=== PATIENT | male | born 1950 | race Caucasian/White ===

== ENCOUNTER → 2016-09-09 | Outpatient (REF) | payer MEDICARE, BC ==
[2016-09-09 12:00] LABS: ANION GAP 6 MEQ/L (8-16); BLOOD UREA NITROGEN 12 MG/DL (7-18); CARBON DIOXIDE LEVEL 32 MEQ/L (21-32); CHLORIDE LEVEL 95 MEQ/L (98-107); CHOLESTEROL LEVEL 173 MG/DL (<200); CREATININE FOR GFR 0.85 MG/DL (0.70-1.30); GLOMERULAR FILTRATION RATE > 60.0 (>49); GLUCOSE, FASTING 150 MG/DL (80-110); POTASSIUM SERUM 4.4 MEQ/L (3.5-5.1); SODIUM LEVEL 133 MEQ/L (136-145); TRIGLYCERIDES LEVEL 35 MG/DL (<150)
== END ==
LOC: M LABDRAWC 11:12
PROVIDERS: ATTEND Internal Medicine Endocrinology, Diabetes & Metabolism
DX: I10 Essential (primary) hypertension (principal); E10.21 Type 1 diabetes mellitus with diabetic nephropathy

== ENCOUNTER → 2016-09-15 | Outpatient (REF) | payer MEDICARE, BC ==
[~2016-09-15] MED LIST: AMLO10TA2 PO; ASPI81TA85 PO; CARV3.12 PO; FLUT22IN INH; INSULANT SQ; LISI-538 PO; LOVA20TA2 PO; NOVOINJ3 SC; NOVOINJ3 SQ; SPIR1CAP INH; SYMB16INH INH
== END ==
LOC: M LAB REF 12:32
PROVIDERS: ATTEND Internal Medicine Endocrinology, Diabetes & Metabolism
DX: E10.21 Type 1 diabetes mellitus with diabetic nephropathy (principal); I10 Essential (primary) hypertension
CPT/HCPCS: 81050; 82043; G0463

== ENCOUNTER 2016-12-10 08:13 | Outpatient (CLI) | payer MEDICARE ==
[~2016-12-10] VITALS: Ht 172.7 cm; Wt 95.3 kg
[~2016-12-10 08:13] MED LIST changes: +NS 1,000 ML IV ONE
[2016-12-10] MEDS ORDERED: ALBUTEROL SULFATE 2.5 MG/0.5 ML INH NEB SOLN INH ONE (09:00)
[2016-12-10] MEDS ORDERED: PROPOFOL 200 MG/20 ML VIAL As Ordered ONE ×2 (09:26→09:39)
--- NOTE | 2016-12-10 09:52 | ROOR ---
Patient Name: Eliceo King Procedure Date: 12/10/2016 9:27 AM Date of : 1950 Age: 66 Room: [facility] Gender: Male Note Status: Finalized Procedure: Colonoscopy Indications: High risk colon cancer surveillance: Personal history of adenoma with high grade dysplasia Providers: DO Alejo Dutta MD: Tesfaye Vargas MD Requesting Provider: Medicines: Propofol per Anesthesia Complications: No immediate complications. Procedure: Pre-Anesthesia Assessment: - Prior to the procedure, a History and Physical was performed, and patient medications and allergies were reviewed. The patient is competent. The risks and benefits of the procedure and the sedation options and risks were discussed with the patient. All questions were answered and informed consent was obtained. Patient identification and proposed procedure were verified by the nurse, the anesthesiologist and the photographic equipment technician in the endoscopy suite. Mental Status Examination: alert and oriented. Airway Examination: normal oropharyngeal airway and neck mobility. Respiratory Examination: clear to auscultation. CV Examination: normal. Prophylactic Antibiotics: The patient does not require prophylactic antibiotics. Prior Anticoagulants: The patient has taken no previous anticoagulant or antiplatelet agents. ASA Grade Assessment: III - A patient with severe systemic disease. After reviewing the risks and benefits, the patient was deemed in satisfactory condition to undergo the procedure. The anesthesia plan was to use monitored anesthesia care (MAC). Immediately prior to administration of medications, the patient was re-assessed for adequacy to receive sedatives. The heart rate, respiratory rate, oxygen saturations, blood pressure, adequacy of pulmonary ventilation, and response to care were monitored throughout the procedure. The physical status of the patient was re-assessed after the procedure. The Colonoscope was introduced through the anus and advanced to the cecum, identified by appendiceal orifice and ileocecal valve. The colonoscopy was performed without difficulty. The patient tolerated the procedure well. Findings: Three hyperplastic polyps were found in the sigmoid colon and transverse colon. These polyps were removed with a jumbo cold forceps. Resection and retrieval were complete. Estimated blood loss was minimal. The perianal exam findings include internal hemorrhoids (Grade I). The exam was otherwise without abnormality on direct and retroflexion views. Impression: - Three polyps in the sigmoid colon and in the transverse colon, removed with a jumbo cold forceps. Resected and retrieved. - Internal hemorrhoids (Grade I) found on perianal exam. - The examination was otherwise normal on direct and retroflexion views. Recommendation: - Patient has a contact number available for emergencies. The signs and symptoms of potential delayed complications were discussed with the patient. Return to normal activities tomorrow. Written discharge instructions were provided to the patient. - Repeat colonoscopy in 3 - 5 years for surveillance based on pathology results. - Return to my office PRN. Gerard Dunn DO 12/10/2016 9:52:15 AM This report has been signed electronically. Number of Addenda: 0 Note Initiated On: 12/10/2016 9:27 AM Estimated Blood Loss: Estimated blood loss was minimal.
[2016-12-10 10:23] VITALS: BP 139/74
== END 2016-12-10 10:27 | disposition home or self-care (01) ==
LOC: M OPP 08:13
PROVIDERS: ATTEND Surgery
DX: Z09 Encounter for follow-up examination after completed treatment for conditions other than malignant neoplasm (principal); K63.5 Polyp of colon; D12.3 Benign neoplasm of transverse colon; K64.8 Other hemorrhoids; I10 Essential (primary) hypertension; E78.00 Pure hypercholesterolemia, unspecified; E11.9 Type 2 diabetes mellitus without complications; J44.9 Chronic obstructive pulmonary disease, unspecified; N40.0 Benign prostatic hyperplasia without lower urinary tract symptoms; Z87.891 Personal history of nicotine dependence; Z79.899 Other long term (current) drug therapy; Z79.82 Long term (current) use of aspirin; Z79.4 Long term (current) use of insulin

== ENCOUNTER → 2017-01-26 | Outpatient (CLI) | payer MEDICARE ==
[~2017-01-26] MED LIST changes: -NS 1,000 ML IV ONE
--- NOTE | 2017-01-26 12:13 | REP ---
Chest x-ray: Two views. History: Left lower lobe pneumonia. Comparison study: September 08, 2013. Findings: The lungs are hyperinflated consistent with COPD. There are emphysematous changes in the apices. There is linear fibrosis in the right base unchanged and some mild interstitial fibrosis changes are seen in both bases. On today's radiograph there is a new somewhat nodular opacity in the left apex which merits further evaluation. Chest CT study recommended. No other abnormality. Impression: Evidence of COPD with bibasilar fibrosis. Question nodular opacity in the left apex recommend chest CT study.
== END ==
LOC: M CLY 09:47
PROVIDERS: ATTEND Family Medicine
DX: J18.1 Lobar pneumonia, unspecified organism (principal); J98.4 Other disorders of lung; Z23 Encounter for immunization
CPT/HCPCS: 71020; G0008

== ENCOUNTER → 2017-06-17 | Outpatient (REF) | payer MEDICARE ==
[2017-06-17 17:10] LABS: PLATELET COUNT, AUTOMATED 334 10^3/uL (150-450)
[2017-06-17 17:20] LABS: INR 0.87; PROTHROMBIN TIME 11.9 SECONDS (12.4-14.5)
[2017-06-17 17:21] LABS: PARTIAL THROMBOPLASTIN TIME 31.1 SECONDS (26.8-37.9)
== END ==
LOC: M LAB REF 16:43
DX: R91.8 Other nonspecific abnormal finding of lung field (principal)
CPT/HCPCS: 85049

== ENCOUNTER → 2017-07-06 | Outpatient (CLI) | payer MEDICARE ==
[~2017-07-06] MED LIST changes: -AMLO10TA2 PO; -ASPI81TA85 PO; -CARV3.12 PO; -FLUT22IN INH; -INSULANT SQ; +LIDOCAINE 1% MDV 20ML VIAL As Ordered; -LISI-538 PO; -LOVA20TA2 PO; -NOVOINJ3 SC; -NOVOINJ3 SQ; -SPIR1CAP INH; -SYMB16INH INH
== END ==
LOC: M RADPRO 09:50
DX: R91.8 Other nonspecific abnormal finding of lung field (principal); Z79.899 Other long term (current) drug therapy
CPT/HCPCS: 71250

== ENCOUNTER → 2017-10-13 | Outpatient (CLI) | payer MEDICARE | LOC: M RAD 14:12 | DX: R91.8 Other nonspecific abnormal finding of lung field (principal) | CPT/HCPCS: 71250 ==

== ENCOUNTER → 2017-10-28 | Outpatient (REF) | payer MEDICARE ==
[2017-10-28 17:44] LABS: PLATELET COUNT, AUTOMATED 317 10^3/uL (150-450)
[2017-10-28 17:55] LABS: PROTHROMBIN TIME 12.3 SECONDS (12.1-14.4)
[2017-10-28 17:56] LABS: PARTIAL THROMBOPLASTIN TIME 32.5 SECONDS (25.4-37.6)
== END ==
LOC: M LAB REF 16:51
DX: R91.1 Solitary pulmonary nodule (principal)
CPT/HCPCS: 85049

== ENCOUNTER 2017-11-12 06:16 | Day surgery (SDC) | payer MEDICARE ==
[2017-11-12] MEDS: LR 1,000 ML IV (06:40)
[2017-11-12 06:51] LABS: BEDSIDE GLUCOSE 136 MG/DL (80-115)
[2017-11-12] MEDS ORDERED: PROPOFOL 200 MG/20 ML VIAL As Ordered (07:12)
[2017-11-12] MEDS ORDERED: LIDOCAINE 2% INJ 100 MG/5 ML SDV (FOR ANES.) As Ordered (07:12)
[2017-11-12] MEDS ORDERED: SUCCINYLCHOLINE 100 MG/5 ML SYRINGE (J0330) As Ordered (07:12)
[2017-11-12] MEDS ORDERED: fentaNYL 100 MCG/2 ML INJECTION (J3010) As Ordered (07:15)
[2017-11-12] MEDS ORDERED: MIDAZOLAM INJ 2 MG/2 ML VIAL (J2250) As Ordered (07:15)
[2017-11-12] MEDS: THROMBIN SOLN 5,000 UNITS VIAL As Ordered (07:16)
[2017-11-12] MEDS: EPINEPHrine 1MG/10ML SYRINGE 1.5IN As Ordered (07:16)
[2017-11-12] MEDS: LIDOCAINE 4% TOPICAL SOLN 50 ML BTL As Ordered (07:17)
[2017-11-12] MEDS: LIDOCAINE VISCOUS 2% SOLN 15ML UDC As Ordered (07:17)
[2017-11-12] MEDS: CETACAINE SPRAY 5GM As Ordered (07:45)
[2017-11-12] MEDS ORDERED: ONDANSETRON 4MG/2ML VIAL (J2405) As Ordered (07:57)
[2017-11-12] MEDS: LIDOCAINE 1% SDV INJ 30 ML VIAL As Ordered (08:00)
[2017-11-12 08:34] LABS: BEDSIDE GLUCOSE 145 MG/DL (80-115)
[2017-11-12] MEDS ORDERED: fentaNYL 100 MCG/2 ML INJECTION (J3010) IV (08:45)
[2017-11-12] MEDS ORDERED: LR 1,000 ML IV (08:45)
[2017-11-12] MEDS ORDERED: ONDANSETRON 4MG/2ML VIAL (J2405) IV (08:45)
== END 2017-11-12 09:38 | disposition home or self-care (01) ==
LOC: M SDC 06:16
DX: J44.1 Chronic obstructive pulmonary disease with (acute) exacerbation (principal); R91.1 Solitary pulmonary nodule; E11.9 Type 2 diabetes mellitus without complications; I10 Essential (primary) hypertension; N40.0 Benign prostatic hyperplasia without lower urinary tract symptoms; Z79.82 Long term (current) use of aspirin; Z79.4 Long term (current) use of insulin; Z79.899 Other long term (current) drug therapy
CPT/HCPCS: 31623

== ENCOUNTER → 2017-12-30 | Outpatient (REF) | payer MEDICARE ==
[2017-12-30 18:38] LABS: ALBUMIN 3.6 GM/DL (3.2-5.2); ALBUMIN/GLOBULIN RATIO 1.06 (1.00-1.93); ALKALINE PHOSPHATASE 101 U/L (45-117); ALT/SGPT 26 U/L (12-78); ANION GAP 9 MEQ/L (8-16); AST/SGOT 12 U/L (7-37); BILIRUBIN,TOTAL 0.6 MG/DL (0.2-1.0); BLOOD UREA NITROGEN 15 MG/DL (7-18); CALCIUM LEVEL 9.1 MG/DL (8.8-10.2); CARBON DIOXIDE LEVEL 29 MEQ/L (21-32); CHLORIDE LEVEL 95 MEQ/L (98-107); CHOLESTEROL LEVEL 161 MG/DL (<200); CHOLESTEROL RISK RATIO 1.894 (<5); CREATININE FOR GFR 0.72 MG/DL (0.70-1.30); GLOMERULAR FILTRATION RATE > 60.0 (>49); GLUCOSE, FASTING 133 MG/DL (70-100); HDL CHOLESTEROL 85 MG/DL (>40); LDL CHOLESTEROL 63 MG/DL (<100); NON-HDL-C 76 MG/DL; POTASSIUM SERUM 4.2 MEQ/L (3.5-5.1); SODIUM LEVEL 133 MEQ/L (136-145); TRIGLYCERIDES LEVEL 65 MG/DL (<150)
[2017-12-30 21:18] LABS: ESTIMATED AVERAGE GLUCOSE 131 MG/DL (60-110); HEMOGLOBIN A1c 6.2 %
== END ==
LOC: M SFHCCLAY 11:09
DX: E10.9 Type 1 diabetes mellitus without complications (principal); I10 Essential (primary) hypertension; E78.00 Pure hypercholesterolemia, unspecified
CPT/HCPCS: 80053

== ENCOUNTER → 2018-01-07 | Outpatient (CLI) | payer MEDICARE | LOC: M RAD 12:08 | DX: R91.1 Solitary pulmonary nodule (principal); J43.9 Emphysema, unspecified | CPT/HCPCS: 71250 ==

== ENCOUNTER → 2018-04-16 | Outpatient (CLI) | payer MEDICARE ==
[~2018-04-16] MED LIST changes: +AMLO10TA5 PO; +ASPI81TA85 PO; +CARV3.12 PO; +FLUT22IN INH; +HUMA100I3 SC; +INSULANT SQ; -LIDOCAINE 1% MDV 20ML VIAL As Ordered; +LISI-538 PO; +LOVA20TA2 PO; +NOVOINJ3 SC; +NOVOINJ3 SQ; +PROAAER10 INH; +SPIR1CAP INH; +SYMB16INH INH; +TOUJ1.2I SC
--- NOTE | 2018-04-16 11:15 | REP ---
CT study of the chest without contrast: History: Solitary pulmonary nodule. Comparison CT study January 07, 2018. Findings: There has been a waxing and waning pattern of parenchymal nodular opacities. Today's study demonstrates a new 9 mm spiculated nodular density in the left posterior lung gutter not present on either January or October 2017 prior studies. The nodule which was identified as a new 10 mm nodule in the superior segment of the right lower lobe on the January 07, 2018 prior study has resolved. There are multiple stable noncalcified and partially calcified nodules bilaterally. There are emphysematous changes and fibrotic changes in the upper lobes bilaterally. No pleural or pericardial effusions seen. Vascular calcification is seen. No hilar or mediastinal mass or adenopathy is observed. No adrenal lesion is seen. Bone window settings show no bony destructive lesion. Impression: Waxing and waning pattern of spiculated nodular opacities bilaterally suggesting inflammatory or granulomatous changes. There is a new spiculated nodule today in the left lower lobe posteriorly. The most recently identified nodule in the superior segment of the right lower lobe has resolved. There are multiple stable nodules as well. Electronically Signed by Vinh Lentz MD 04/16/2018 12:11 P
== END ==
LOC: M RAD 09:09
PROVIDERS: ATTEND Internal Medicine Pulmonary Disease
DX: R91.1 Solitary pulmonary nodule (principal)

== ENCOUNTER → 2018-08-04 | Outpatient (CLI) | payer MEDICARE ==
--- NOTE | 2018-08-14 10:01 | REP ---
CT CHEST WITHOUT CONTRAST: REPEAT DICTATION. HISTORY: Solitary pulmonary nodule. Comparison chest CT studies are reviewed from March 11, 2017, October 13, 2017, January 07, 2018, and April 16, 2018. The studies have shown waxing and waning pattern of spiculated nodular densities bilaterally and some stable nodules. FINDINGS: The spiculated nodular 9 mm density identified on the most recent prior study in the left lower lobe, April 16, 2018, has resolved. All of the other nodular opacities visualized on April 16, 2018 prior study are again seen, unchanged. No new pulmonary nodule is appreciated. There are emphysematous and fibrotic changes. These are most pronounced in the upper lobes and are also unchanged. There is linear strand-like material in the tracheobronchial tree, consistent with mucus. No pleural or pericardial effusion is seen. Some vascular calcifications noted. No adrenal lesion is observed. IMPRESSION: Stable nodular densities. Most recent prior study showed a 9 mm spiculated nodule in the left lower lobe. This has resolved. Electronically Signed by Vinh Lentz MD 08/14/2018 11:01 A
== END ==
LOC: M RAD 10:45
PROVIDERS: ATTEND Internal Medicine Pulmonary Disease
DX: R91.1 Solitary pulmonary nodule (principal)

== ENCOUNTER → 2019-09-26 | Outpatient (REF) | payer MEDICARE ==
[2019-09-26 12:55] LABS: CREATININE, URINE 30.8 MG/DL; MAU/CREAT RATIO 35.7 MCG/MG (0.0-30.0)
== END ==
LOC: M LABDRAWC 11:19
PROVIDERS: ATTEND Nurse Practitioner Family
DX: E10.21 Type 1 diabetes mellitus with diabetic nephropathy (principal)

== ENCOUNTER → 2019-10-26 | Outpatient (CLI) | payer MEDICARE ==
[~2019-10-26] MED LIST changes: -AMLO10TA5 PO; +AMLO1TAB25 PO; -ASPI81TA85 PO; +ASPI81TA86 PO
--- NOTE | 2019-10-26 11:39 | REP ---
Clinical: Follow up pulmonary densities. Technique: Axial noncontrast images from the thoracic inlet to the upper abdomen with coronal and sagittal re-formations. Comparison: 08/04/2018, 04/16/2018, 01/07/2018. Findings: Advanced COPD/emphysematous changes are again appreciated along with few scattered calcified nodular densities and a previously reported waxing and waning pattern of the parenchymal nodular changes suggesting an underlying inflammatory or granulomatous process. The current examination now demonstrates a 9 mm spiculated part solid density in the posterior right upper lobe (image 35). No further significant new/prominent lesion is identified. No effusion. No pneumothorax. Tracheobronchial tree is patent. No obvious axillary, hilar, or mediastinal adenopathy. The mediastinum again demonstrates stable atherosclerotic changes to the thoracic aorta and coronary arteries without aortic aneurysm or cardiomegaly. No pericardial effusion. Surrounding musculoskeletal structures demonstrate age-related changes. Limited upper abdomen demonstrates normal bilateral adrenal glands. Impression: 1. Chronic COPD/emphysematous disease. 2. Previously reported a waxing and waning nodular changes likely represent an underlying infectious/inflammatory or granulomatous process and the current examination now demonstrates a new 9 mm part solid spiculated lesion in the right upper lobe. Electronically Signed by Brian Gifford MD 10/26/2019 11:31 A
== END ==
LOC: M RAD 10:54
PROVIDERS: ATTEND Internal Medicine Pulmonary Disease
DX: R91.8 Other nonspecific abnormal finding of lung field (principal)

== ENCOUNTER → 2020-01-06 | Outpatient (REF) | payer MEDICARE ==
[2020-01-06 13:30] LABS: BLOOD UREA NITROGEN 12 MG/DL (7-18); CALCIUM LEVEL 9.2 MG/DL (8.8-10.2); CARBON DIOXIDE LEVEL 34 MEQ/L (21-32); CHLORIDE LEVEL 96 MEQ/L (98-107); CHOLESTEROL LEVEL 180 MG/DL (<200); CHOLESTEROL RISK RATIO 2.278 (<5); CREATININE FOR GFR 0.76 MG/DL (0.70-1.30); GLOMERULAR FILTRATION RATE > 60.0 (>49); GLUCOSE, FASTING 102 MG/DL (70-100); HDL CHOLESTEROL 79 MG/DL (>40); LDL CHOLESTEROL 92 MG/DL (<100); NON-HDL-C 101 MG/DL; POTASSIUM SERUM 4.5 MEQ/L (3.5-5.1); SODIUM LEVEL 134 MEQ/L (136-145); TRIGLYCERIDES LEVEL 46 MG/DL (<150)
== END ==
LOC: M SFHCCLAY 07:13
PROVIDERS: ATTEND Family Medicine
DX: E78.00 Pure hypercholesterolemia, unspecified (principal); I11.9 Hypertensive heart disease without heart failure

== ENCOUNTER → 2020-03-05 | Outpatient (CLI) | payer MEDICARE ==
--- NOTE | 2020-03-05 08:36 | REP ---
INDICATION: OTHER NONSPECIFIC ABNORMAL FINDING. COMPARISON: Comparison chest CT studies are reviewed, the most recent of which is October 26, 2019. August 04, 2018 and January 07, [address] studies are also reviewed. Previous studies of showed a waxing and waning pattern of multifocal pulmonary nodular disease.. TECHNIQUE: Helical scanning is acquired and 3 mm axial images re-formatted. Coronal and sagittal MPR images are generated. FINDINGS: Lungs are hyperinflated and advanced emphysematous changes are noted in the upper lung zones again consistent with COPD. Today's CT study shows numerous new ill-defined irregular nodular opacities scattered throughout the upper and lower lobes bilaterally.. The largest of these new opacities are in the lower lobes. There is a pleural based lesion in the left lower lobe 2 cm in diameter and a pleural based lesion in the right lower lobe 2.5 cm in greatest diameter. There are old granulomatous calcifications and cysts multiple old subcentimeter nodules are again seen unchanged but there is a pat prominent pattern of new multifocal ill-defined nodular disease. No endobronchial disease is appreciated. There are scattered normal sized mediastinal lymph nodes. None of these is pathologically enlarged but are several new lymph nodes. The largest lymph node is in the AP window region of the mediastinum on the left measuring 7 mm in short axis dimension. No definite adenopathy. Left coronary artery vascular calcification and right coronary artery vascular calcification are again noted. Normal adrenal glands are seen. The visualized upper abdominal structures are unremarkable. IMPRESSION: Numerous new ill-defined nodular marshall densities scattered in the upper and lower lobes bilaterally. Largest of these measures 2.5 cm in greatest diameter. Chronic changes COPD emphysema. <Electronically signed by Chris Lentz > 03/05/20 [id number]
== END ==
LOC: M RAD 07:48
PROVIDERS: ATTEND Internal Medicine Pulmonary Disease
DX: R91.1 Solitary pulmonary nodule (principal)

== ENCOUNTER → 2020-03-08 | Outpatient (REF) | payer MEDICARE | LOC: M LAB REF 11:08 | PROVIDERS: ATTEND Internal Medicine Pulmonary Disease | DX: J43.1 Panlobular emphysema (principal) ==

== ENCOUNTER → 2020-03-08 | Outpatient (REF) | payer MEDICARE ==
[2020-03-15 10:11] LABS: ASPERGILLUS FLAVUS ABY Negative (Neg:<1:1); ASPERGILLUS FUMIGATUS ABY Negative (Neg:<1:1); ASPERGILLUS NIGER ABY Negative (Neg:<1:1); BLASTOMYCES ANTIBODY LEVEL Negative (Neg:<1:1); CRYPTOCOCCUS ANTIGEN SER Negative (Negative)
== END ==
LOC: M LABDRAWC 11:06
PROVIDERS: ATTEND Internal Medicine Pulmonary Disease
DX: R91.8 Other nonspecific abnormal finding of lung field (principal); J43.1 Panlobular emphysema

== ENCOUNTER → 2020-03-21 | Outpatient (CLI) | payer MEDICARE ==
--- NOTE | 2020-03-21 10:43 | REP ---
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 COMPARISON: Comparison chest x-ray November 12, 2017. January 26, 2017 radiograph is also reviewed. There is a comparison chest CT study March 05, 2020. This showed numerous ill-defined nodules. TECHNIQUE: Two views.. FINDINGS: The lungs are hyperinflated consistent with some degree of COPD as before. Ill-defined nodular opacities are seen at the left base, overlying the left hilus, and on the lateral film anteriorly in the retrosternal clear space. No focal infiltrate is appreciated. There is linear fibrosis in the right base which is unchanged. The heart is not enlarged. Degenerative changes are noted in the thoracic spine. IMPRESSION: Hyperinflation consistent with COPD. Ill-defined nodular opacities on the left as above and correlating with recent CT findings.. Linear fibrosis right base.. <Electronically signed by Chris Lentz > 03/21/20 [id number]
== END ==
LOC: M CLY 09:20
PROVIDERS: ATTEND Internal Medicine Pulmonary Disease
DX: J43.1 Panlobular emphysema (principal)

== ENCOUNTER → 2020-04-11 | Outpatient (REF) | payer MEDICARE ==
[2020-04-11 12:20] LABS: BLOOD UREA NITROGEN 19 MG/DL (7-18); CALCIUM LEVEL 9.5 MG/DL (8.8-10.2); CARBON DIOXIDE LEVEL 36 MEQ/L (21-32); CHLORIDE LEVEL 98 MEQ/L (98-107); CREATININE FOR GFR 0.88 MG/DL (0.70-1.30); GLOMERULAR FILTRATION RATE > 60.0 (>49); GLUCOSE, FASTING 64 MG/DL (70-100); POTASSIUM SERUM 4.7 MEQ/L (3.5-5.1); SODIUM LEVEL 137 MEQ/L (136-145)
== END ==
LOC: M SFHCCLAY 09:11
PROVIDERS: ATTEND Family Medicine
DX: I11.9 Hypertensive heart disease without heart failure (principal)
CPT/HCPCS: 80048; G0442; G0444

== ENCOUNTER → 2020-08-08 | Outpatient (REF) | payer MEDICARE ==
[~2020-08-08] MED LIST changes: -LISI-538 PO; +LISI20TA33 PO
[2020-08-08 17:06] LABS: BLOOD UREA NITROGEN 16 MG/DL (7-18); CALCIUM LEVEL 9.2 MG/DL (8.8-10.2); CARBON DIOXIDE LEVEL 33 MEQ/L (21-32); CHLORIDE LEVEL 96 MEQ/L (98-107); CREATININE FOR GFR 0.75 MG/DL (0.70-1.30); GLOMERULAR FILTRATION RATE > 60.0 (>49); GLUCOSE, FASTING 114 MG/DL (70-100); POTASSIUM SERUM 4.6 MEQ/L (3.5-5.1); SODIUM LEVEL 133 MEQ/L (136-145)
== END ==
LOC: M SFHCCLAY 09:36
PROVIDERS: ATTEND Family Medicine
DX: I11.9 Hypertensive heart disease without heart failure (principal)
CPT/HCPCS: 80048; G0463

== ENCOUNTER → 2020-09-10 | Outpatient (REF) | payer MEDICARE ==
[2020-09-11 13:12] LABS: MALB URINE SIEMENS 11.6 MG/L; MAU/CREAT RATIO 25.7 MCG/MG (0.0-30.0)
== END ==
LOC: M LAB REF 17:08
PROVIDERS: ATTEND Nurse Practitioner Family
DX: E10.21 Type 1 diabetes mellitus with diabetic nephropathy (principal)

== ENCOUNTER → 2020-12-12 | Outpatient (REF) | payer MEDICARE ==
[2020-12-12 16:27] LABS: BLOOD UREA NITROGEN 16 MG/DL (7-18); CALCIUM LEVEL 9.3 MG/DL (8.8-10.2); CARBON DIOXIDE LEVEL 33 MEQ/L (21-32); CHLORIDE LEVEL 96 MEQ/L (98-107); CREATININE FOR GFR 0.77 MG/DL (0.70-1.30); GLOMERULAR FILTRATION RATE > 60.0 (>42); GLUCOSE, FASTING 119 MG/DL (70-100); POTASSIUM SERUM 4.8 MEQ/L (3.5-5.1); SODIUM LEVEL 133 MEQ/L (136-145)
== END ==
LOC: M SFHCCLAY 09:49
PROVIDERS: ATTEND Family Medicine
DX: I11.9 Hypertensive heart disease without heart failure (principal)
CPT/HCPCS: 80048; G0463

== ENCOUNTER → 2021-04-17 | Outpatient (REF) | payer MEDICARE ==
[2021-04-17 13:21] LABS: BLOOD UREA NITROGEN 9 MG/DL (7-18); CALCIUM LEVEL 9.2 MG/DL (8.8-10.2); CARBON DIOXIDE LEVEL 32 MEQ/L (21-32); CHLORIDE LEVEL 98 MEQ/L (98-107); CHOLESTEROL LEVEL 175 MG/DL (<200); CHOLESTEROL RISK RATIO 1.861 (<5); CREATININE FOR GFR 0.74 MG/DL (0.70-1.30); GLOMERULAR FILTRATION RATE > 60.0 (>42); GLUCOSE, FASTING 74 MG/DL (70-100); HDL CHOLESTEROL 94 MG/DL (>40); LDL CHOLESTEROL 75 MG/DL (<100); NON-HDL-C 81 MG/DL; POTASSIUM SERUM 4.5 MEQ/L (3.5-5.1); SODIUM LEVEL 136 MEQ/L (136-145); TRIGLYCERIDES LEVEL 32 MG/DL (<150)
== END ==
LOC: M SFHCCLAY 07:04
PROVIDERS: ATTEND Family Medicine
DX: Z00.00 Encounter for general adult medical examination without abnormal findings (principal); I11.9 Hypertensive heart disease without heart failure; E78.00 Pure hypercholesterolemia, unspecified

== ENCOUNTER → 2021-09-09 | Outpatient (REF) | payer MEDICARE ==
[2021-09-10 07:48] LABS: CREATININE, URINE 43.1 MG/DL; MALB URINE SIEMENS 10.8 MG/L
== END ==
LOC: M LAB REF 17:01
PROVIDERS: ATTEND Nurse Practitioner Family
DX: E10.21 Type 1 diabetes mellitus with diabetic nephropathy (principal)

== ENCOUNTER → 2021-10-14 | Outpatient (REF) | payer MEDICARE ==
[2021-10-14 15:05] LABS: BLOOD UREA NITROGEN 20 MG/DL (7-18); CARBON DIOXIDE LEVEL 34 MEQ/L (21-32); CHLORIDE LEVEL 94 MEQ/L (98-107); CREATININE FOR GFR 0.87 MG/DL (0.70-1.30); GLOMERULAR FILTRATION RATE > 60.0 (>42); GLUCOSE, FASTING 117 MG/DL (70-100); POTASSIUM SERUM 5.1 MEQ/L (3.5-5.1); SODIUM LEVEL 131 MEQ/L (136-145)
[2021-10-14 15:06] LABS: CALCIUM LEVEL 8.9 MG/DL (8.8-10.2)
== END ==
LOC: M SFHCCLAY 08:44
PROVIDERS: ATTEND Family Medicine
DX: I11.9 Hypertensive heart disease without heart failure (principal)

== ENCOUNTER → 2022-02-04 | Outpatient (REF) | payer MEDICARE ==
[2022-02-04 17:21] LABS: HEMATOCRIT 46.3 % (42.0-52.0); HEMOGLOBIN 14.6 g/dl (13.5-17.5); MEAN CORPUSCULAR HEMOGLOBIN 31.3 pg (27.0-33.0); MEAN CORPUSCULAR HGB CONC 31.5 g/dl (32.0-36.5); MEAN CORPUSCULAR VOLUME 99.1 fl (80.0-96.0); PLATELET COUNT, AUTOMATED 356 10^3/uL (150-450); RED BLOOD COUNT 4.67 10^6/uL (4.30-6.10); WHITE BLOOD COUNT 9.6 10^3/uL (4.0-10.0)
[2022-02-04 17:41] LABS: ALBUMIN 3.4 GM/DL (3.2-5.2); ALT/SGPT 23 U/L (12-78); BILIRUBIN,TOTAL 0.5 MG/DL (0.2-1.0); BLOOD UREA NITROGEN 17 MG/DL (7-18); CALCIUM LEVEL 9.3 MG/DL (8.8-10.2); CARBON DIOXIDE LEVEL 34 MEQ/L (21-32); CHLORIDE LEVEL 92 MEQ/L (98-107); CHOLESTEROL LEVEL 226 MG/DL (<200); CHOLESTEROL RISK RATIO 2.215 (<5); CREATININE FOR GFR 0.92 MG/DL (0.70-1.30); GLOMERULAR FILTRATION RATE > 60.0 (>42); GLUCOSE, FASTING 181 MG/DL (70-100); HDL CHOLESTEROL 102 MG/DL (>40); LDL CHOLESTEROL 108 MG/DL (<100); NON-HDL-C 124 MG/DL; POTASSIUM SERUM 4.8 MEQ/L (3.5-5.1); SODIUM LEVEL 133 MEQ/L (136-145); TOTAL PROTEIN 7.3 GM/DL (6.4-8.2); TRIGLYCERIDES LEVEL 80 MG/DL (<150)
== END ==
LOC: M SFHCCLAY 13:01
PROVIDERS: ATTEND Nurse Practitioner Family
DX: E78.00 Pure hypercholesterolemia, unspecified (principal); I11.9 Hypertensive heart disease without heart failure

== ENCOUNTER → 2022-06-13 | Outpatient (REF) | payer MEDICARE ==
[2022-06-13 17:48] LABS: BLOOD UREA NITROGEN 13 MG/DL (9-23); CALCIUM LEVEL 9.2 MG/DL (8.3-10.6); CARBON DIOXIDE LEVEL 36 MMOL/L (20-31); CHLORIDE LEVEL 93 MMOL/L (98-107); CHOLESTEROL LEVEL 174 MG/DL (<200); CHOLESTEROL RISK RATIO 2.09 (<5); CREATININE FOR GFR 0.72 MG/DL (0.70-1.30); GLOMERULAR FILTRATION RATE > 60.0 (>42); GLUCOSE, FASTING 74 MG/DL (74-106); HDL CHOLESTEROL 82.9 MG/DL (>40); LDL CHOLESTEROL 83.1 MG/DL (<100); NON-HDL-C 91.1 MG/DL; SODIUM LEVEL 133 MMOL/L (136-145); TRIGLYCERIDES LEVEL 40 MG/DL (<150)
== END ==
LOC: M SFHCCLAY 10:27
PROVIDERS: ATTEND Nurse Practitioner Family
DX: I10 Essential (primary) hypertension (principal); E78.00 Pure hypercholesterolemia, unspecified

== ENCOUNTER → 2022-09-08 | Outpatient (REF) | payer MEDICARE ==
[2022-09-08 19:07] LABS: CREATININE, URINE 68.8 MG/DL; MAU/CREAT RATIO 20.3 MCG/MG (0.0-30.0)
== END ==
LOC: M LABDRAWC 17:22
PROVIDERS: ATTEND Nurse Practitioner Family
DX: E10.21 Type 1 diabetes mellitus with diabetic nephropathy (principal)

== ENCOUNTER → 2022-12-09 | Outpatient (REF) | payer MEDICARE ==
[2022-12-09 17:56] LABS: BLOOD UREA NITROGEN 25 MG/DL (9-23); CALCIUM LEVEL 8.8 MG/DL (8.3-10.6); CARBON DIOXIDE LEVEL 40 MMOL/L (20-31); CHLORIDE LEVEL 89 MMOL/L (98-107); CHOLESTEROL LEVEL 190 MG/DL (<200); CHOLESTEROL RISK RATIO 1.93 (<5); CREATININE FOR GFR 0.75 MG/DL (0.70-1.30); GLOMERULAR FILTRATION RATE > 60.0 (>42); GLUCOSE, FASTING 114 MG/DL (74-106); HDL CHOLESTEROL 98.2 MG/DL (>40); LDL CHOLESTEROL 81.4 MG/DL (<100); NON-HDL-C 91.8 MG/DL; POTASSIUM SERUM 4.5 MMOL/L (3.5-5.1); SODIUM LEVEL 131 MMOL/L (136-145); TRIGLYCERIDES LEVEL 52 MG/DL (<150)
== END ==
LOC: M SFHCCLAY 11:25
PROVIDERS: ATTEND Nurse Practitioner Family
DX: E78.00 Pure hypercholesterolemia, unspecified (principal); I10 Essential (primary) hypertension